=== PATIENT | female | born 1990 | race Native Hawaiian/Other Pacific Islander ===

== ENCOUNTER 2017-08-15 01:08 | Emergency (ER) | payer SELFPAY ==
--- NOTE | 2017-08-15 01:37 | ED PDOC ---
Arrival/HPI - General Chief Complaint: Chest Pain Time Seen by Provider: 08/15/17 01:16 Historian: Patient - History of Present Illness Narrative History of Present Illness (Text): 08/15/17 01:32 A 27 year old female, with no significant past medical history, who presents to the emergency debarment complaining of vague chest discomfort for the past few days. Patient reports associated occasional shortness of breath and tingling sensation in her hands and feet. Patient notes she has a history of difficulty sleeping. Patient denies fevers, chills, cough, headache, dizziness, abdominal pain, nausea, vomiting, diarrhea, back pain, neck pain, or any other related complaints. Time/Duration: > week Symptom Onset: Gradual Symptom Course: Unchanged, Intermittent Activities at Onset: Rest Context: Home Past Medical History - Provider Review Nursing Documentation Reviewed: Yes - Infectious Disease Hx of Infectious Diseases: None - Psychiatric Hx Substance Use: No - Anesthesia Hx Anesthesia: No Family/Social History - Physician Review Nursing Documentation Reviewed: Yes Family/Social History: No Known Family HX Smoking Status: Never Smoked Hx Alcohol Use: Yes Frequency of alcohol use: Socially Hx Substance Use: No Allergies/Home Meds Allergies/Adverse Reactions: Allergies No Known Allergies Allergy (Verified 08/15/17 01:21) Review of Systems - Physician Review All systems were reviewed & negative as marked: Yes - Review of Systems Constitutional: Normal. absent: Fevers, Night Sweats Eyes: Normal ENT: Normal Respiratory: SOB Cardiovascular: Chest Pain Gastrointestinal: Normal. absent: Abdominal Pain, Diarrhea, Nausea, Vomiting Genitourinary Female: Normal Musculoskeletal: Normal Skin: Normal Neurological: Normal. absent: Headache Endocrine: Normal Hemo/Lymphatic: Normal Psychiatric: Normal Physical Exam Vital Signs Reviewed: Yes Vital Signs Temp Pulse Pulse Resp BP Pulse Ox 08/15/17 01:58 86 08/15/17 01:33 97.8 F 77 17 113/85 100 Temperature: Afebrile Blood Pressure: Normal Pulse: Regular Respiratory Rate: Normal Appearance: Positive for: Well-Appearing, Non-Toxic, Comfortable Pain Distress: None Mental Status: Positive for: Alert and Oriented X 3 - Systems Exam Head: Present: Atraumatic, Normocephalic Pupils: Present: PERRL Extroacular Muscles: Present: EOMI Conjunctiva: Present: Normal Mouth: Present: Moist Mucous Membranes Neck: Present: Normal Range of Motion Respiratory/Chest: Present: Clear to Auscultation, Good Air Exchange. No: Respiratory Distress, Accessory Muscle Use Cardiovascular: Present: Regular Rate and Rhythm, Normal S1, S2. No: Murmurs Abdomen: Present: Normal Bowel Sounds. No: Tenderness, Distention, Peritoneal Signs Back: Present: Normal Inspection Upper Extremity: Present: Normal Inspection. No: Cyanosis, Edema Lower Extremity: Present: Normal Inspection. No: Edema Neurological: Present: GCS=15, CN II-XII Intact, Speech Normal Skin: Present: Warm, Dry, Normal Color. No: Rashes Psychiatric: Present: Alert, Oriented x 3, Normal Insight, Normal Concentration Medical Decision Making ED Course and Treatment: 08/15/17 01:42 Impression: A 27 year old female with vague chest discomfort, occasional shortness of breath, and tingling sensation in hands and feet. Plan: -- EKG -- Chest X-Ray -- Labs, cardiac enzymes, D-dimer -- Reassess and disposition Progress Notes: Reviewed EKG, NSR at 76 bpm. Sinus arrhythmia. No acute changes. 08/15/17 03:09 Chest X-ray reviewed, shows no acute proceses/ 08/15/17 03:14 On re-evaluation, patient feels better and is in no acute distress. I have discussed the results and plan with the patient, who expresses understanding. Patient in agreement with plan to be discharged home. Patient is stable for discharge. Patient was instructed to follow up with physician or return if symptoms worsen or new concerning symptoms arise. - Lab Interpretations Lab Results: 08/15/17 01:54 08/15/17 01:54 Lab Results 08/15/17 01:54: D-Dimer, Quantitative < 200 08/15/17 01:54: WBC 7.5, RBC 4.90, Hgb 11.3 L, Hct 35.7 L, MCV 72.9 L, MCH 23.1 L, MCHC 31.7, RDW 15.2 H, Plt Count 314, MPV 10.5 08/15/17 01:54: Sodium 138, Potassium 3.6, Chloride 94 L, Carbon Dioxide 33, Anion Gap 15, BUN 11, Creatinine 0.6 L, Est GFR ( Amer) > 60, Est GFR ( Non-Af Amer) > 60, Random Glucose 91, Calcium 10.6 H, Total Bilirubin 0.6, AST 31, ALT 26, Alkaline Phosphatase 70, Lactate Dehydrogenase 479, Total Creatine Kinase 52, Troponin I < 0.01, Total Protein 8.9 H, Albumin 4.8, Globulin 4.0, Albumin/Globulin Ratio 1.2 I have reviewed the lab results: Yes Interpretation: All labs normal - RAD Interpretation Radiology Orders: 08/15/17 01:34 CHEST PORTABLE [RAD] [employer] Solutions Manager: ED Physician - EKG Interpretation Interpreted by ED Physician: Yes Type: 12 lead EKG - Scribe Statement The provider has reviewed the documentation as recorded by the Jenae Ortegaibe Attestation: Ashleigh Matt under supervision of Lily Emanuel Attestation: All medical record entries made by the Jordanibe were at my direction and personally dictated by me. I have reviewed the chart and agree that the record accurately reflects my personal performance of the history, physical exam, medical decision making, and the department course for this patient. I have also personally directed, reviewed, and agree with the discharge instructions and disposition. Disposition/Present on Arrival - Present on Arrival Any Indicators Present on Arrival: No History of DVT/PE: No History of Uncontrolled Diabetes: No Urinary Catheter: No History of Decub. Ulcer: No History Surgical Site Infection Following: None - Disposition Have Diagnosis and Disposition been Completed?: Yes Diagnosis: Chest pain, Anxiety Disposition: HOME/ ROUTINE Disposition Time: 03:10 Patient Plan: Discharge Condition: GOOD Discharge Instructions (ExitCare): Chest Pain (ED) Additional Instructions: maintain proper sleep/no strenuous physical activity/medication as prescribed/ advil as directed/follow up with your doctor this week Prescriptions: hydrOXYzine HCl [Atarax] 25 mg PO Q8H PRN #15 tab PRN Reason: Anxiety Forms: [employer] (Kinyarwanda)
[2017-08-15 02:11] LABS: HEMOGLOBIN 11.3 g/dL (12.0-16.0); MEAN CELL VOLUME 72.9 fl (80.0-105.0); MEAN CORPUSCULAR HEMOGLOBIN 23.1 pg (25.0-35.0); MEAN CORPUSCULAR HGB CONC 31.7 g/dl (31.0-37.0); MEAN PLATELET VOLUME 10.5 fl (7.0-11.0); RBC 4.9 10^6/uL (3.5-6.1); RED CELL DISTRIBUTION WIDTH 15.2 % (11.5-14.5); WHITE BLOOD COUNT 7.5 10^3/ul (4.5-11.0)
[2017-08-15 02:14] LABS: ALB/GLOB RATIO 1.2 (1.1-1.8); ALBUMIN 4.8 g/dL (3.0-4.8); ALT/SGPT 26 U/L (7-56); AST/SGOT 31 U/L (14-36); BLOOD UREA NITROGEN 11 mg/dL (7-21); CALCIUM 10.6 mg/dL (8.4-10.5); GFR AFRICAN-AMERICAN > 60; GFR NON-AFRICAN AMERICAN > 60
[2017-08-15 02:25] LABS: TROPONIN I < 0.01 ng/mL
[2017-08-15 03:34] VITALS: BP 114/75; PULSE 73; RESP 18; TEMP 98; O2SAT 98
--- NOTE | 2017-08-15 10:19 | RAD ---
HISTORY: pain COMPARISON: No prior. FINDINGS: LUNGS: No active pulmonary disease. PLEURA: No significant pleural effusion identified, no pneumothorax apparent. CARDIOVASCULAR: Normal. OSSEOUS STRUCTURES: No significant abnormalities. VISUALIZED UPPER ABDOMEN: Normal. OTHER FINDINGS: None. IMPRESSION: No acute cardiopulmonary disease appreciated.
--- NOTE | 2017-08-15 23:18 | CARD ---
APPROVED REPORT EKG Measurement Heart [id number] <Conclusion> Normal sinus rhythm with sinus arrhythmia Normal ECG
== END 2017-08-15 03:29 | disposition home or self-care (01) ==
LOC: ED 01:08
DX: R07.9 Chest pain, unspecified (principal); F41.9 Anxiety disorder, unspecified

== ENCOUNTER 2018-07-16 18:22 | Emergency (ER) | payer OTHER ==
[2018-07-16 18:29] VITALS: BMI 22.3
[2018-07-16 18:48] VITALS: TEMP 98; O2SAT 100
--- NOTE | 2018-07-16 19:10 | ED PDOC ---
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 Patient describes pain as heaviness. States she was watching Netflix when pain occurred. Mentions now pain has improved but is still present. Patient denies any fever, chills, URI symptoms, shortness of breath, radiating back pain, nausea, vomiting, any trauma, leg pain/swelling, or any other complaints at this time. Denies any recent travel, denies history of smoking. No PMD <Lisa Porter PA-C - Last Filed: 07/16/18 21:56> - General Chief Complaint: Chest Pain Time Seen by Provider: 07/16/18 18:34 Past Medical History - Provider Review Nursing Documentation Reviewed: Yes - Infectious Disease Hx of Infectious Diseases: None - Pulmonary Hx Asthma: Yes - Psychiatric Hx Anxiety: Yes Hx Substance Use: No - Anesthesia Hx Anesthesia: No <Lisa Porter PA-C - Last Filed: 07/16/18 21:56> Family/Social History - Physician Review Nursing Documentation Reviewed: Yes Family/Social History: No Known Family HX Smoking Status: Never Smoked Hx Alcohol Use: Yes Hx Substance Use: No <Lisa Porter PA-C - Last Filed: 07/16/18 21:56> Allergies/Home Meds <Hola Newman - Last Filed: 07/16/18 20:47> <Lisa Porter PA-C - Last Filed: 07/16/18 21:56> Allergies/Adverse Reactions: Allergies No Known Allergies Allergy (Verified 08/15/17 01:21) Review of Systems - Physician Review All systems were reviewed & negative as marked: Yes - Review of Systems Constitutional: absent: Fevers, Night Sweats Respiratory: absent: SOB, Cough, Sputum, Wheezing Cardiovascular: Chest Pain Gastrointestinal: absent: Nausea, Vomiting Musculoskeletal: absent: Back Pain, Other (no leg pain/swelling) <Lisa Porter PA-C - Last Filed: 07/16/18 21:56> Physical Exam Vital Signs Temp Pulse Resp BP Pulse Ox 07/16/18 20:10 79 14 113/65 100 07/16/18 18:43 98.0 F 97 H 18 132/83 100 <Hola Newman - Last Filed: 07/16/18 20:47> Vital Signs Reviewed: Yes Vital Signs Temp Pulse Resp BP Pulse Ox 07/16/18 18:43 98.0 F 97 H 18 132/83 100 Temperature: Afebrile Blood Pressure: Normal Pulse: Tachycardic Respiratory Rate: Normal Appearance: Positive for: Well-Appearing, Non-Toxic, Comfortable Pain Distress: Mild Mental Status: Positive for: Alert and Oriented X 3 - Systems Exam Head: Present: Atraumatic, Normocephalic Pupils: Present: PERRL Extroacular Muscles: Present: EOMI Conjunctiva: Present: Normal Mouth: Present: Moist Mucous Membranes Neck: Present: Normal Range of Motion Respiratory/Chest: Present: Clear to Auscultation, Good Air Exchange. No: Respiratory Distress, Accessory Muscle Use Cardiovascular: Present: Regular Rate and Rhythm, Normal S1, S2, Tachycardic. No: Murmurs Abdomen: No: Tenderness, Distention, Peritoneal Signs Back: Present: Normal Inspection Upper Extremity: Present: Normal Inspection. No: Cyanosis, Edema Lower Extremity: Present: Normal Inspection. No: Edema Neurological: Present: GCS=15, CN II-XII Intact, Speech Normal Skin: Present: Warm, Dry, Normal Color. No: Rashes Psychiatric: Present: Alert, Oriented x 3, Normal Insight, Normal Concentration, Anxious <Lisa Porter PA-C - Last Filed: 07/16/18 21:56> Medical Decision Making - Lab Interpretations Lab Results: PT 11.4 SECONDS (9.4-12.5) 07/16/18 19:29 INR 1.03 07/16/18 19:29 APTT 29.5 Seconds (26.9-38.3) 07/16/18 19:29 D-Dimer, Quantitative < 200 ng/mlDDU (0-243) 07/16/18 19:29 Troponin I < 0.01 ng/mL 07/16/18 19:29 Total Bilirubin 0.5 mg/dL (0.2-1.3) 07/16/18 19:29 AST 32 U/L (14-36) 07/16/18 19:29 ALT 12 U/L (7-56) 07/16/18 19:29 Alkaline Phosphatase 67 U/L (38-126) 07/16/18 19:29 Total Protein 8.5 g/dL (5.8-8.3) H 07/16/18 19:29 Albumin 4.6 g/dL (3.0-4.8) 07/16/18 19:29 Globulin 3.9 gm/dL 07/16/18 19:29 Albumin/Globulin Ratio 1.2 (1.1-1.8) 07/16/18 19:29 - RAD Interpretation Radiology Orders: 07/16/18 18:53 CHEST PORTABLE [RAD] Stat - Medication Orders Current Medication Orders: Discontinued Medications Alprazolam (Xanax) 0.25 mg PO STAT STA; Protocol Stop: 07/16/18 18:56 Last Admin: 07/16/18 19:30 Dose: 0.25 mg Potassium Chloride (Potassium Chloride Oral Soln) 40 meq PO STAT STA Stop: 07/16/18 19:48 Last Admin: 07/16/18 20:08 Dose: 40 meq <Hola Newman - Last Filed: 07/16/18 20:47> ED Course and Treatment: 07/16/18 19:10 Impression: 28 year old female with chest pain. Plan: -- EKG -- Chest X-ray -- Labs -- Xanax -- POC Urine Test -- Reassess and disposition Prior Visits: Notes and results from previous visits were reviewed. Patient was last seen in the emergency department on 07/2017 for chest pain and had a cardiac workup, including normal EKG and normal Chest X-ray. Progress Notes: 07/16/18 21:00 EKG : NSR at 95 bpm, no acute ST changes, as read by PA CXR : NAD, as read by PA Labs reviewed mild anemia, K 3.2, (-) trop and (-) d-dimer, UDS +cannabis Patient given KCl PO. On re-evaluation, patient reports improvement of symptoms, denies any chest pain or SOB. VS P 98 BP 114/64 O2sat 100%RA. On exam, patient remains AAOx3, in no acute distress. Diagnostic results d/w the patient in great detail. Diagnosis of chest pain, likely anxiety d/w the patient. Based on history, exam and diagnostic results, plan will be for outpatient follow upn. Patient instructed to follow-up with referral provided in 1-2 days without fail. Advised to take medication as prescribed. Return to the emergency room at any time for any new or worsening symptoms. Patient states she fully agrees with and understands discharge instructions. States that she agrees with the plan and disposition. Verbalized and repeated discharge instructions and plan. I have given the patient opportunity to ask any additional questions. - RAD Interpretation Radiology Orders: 07/16/18 18:53 CHEST PORTABLE [RAD] Stat - Medication Orders Current Medication Orders: Discontinued Medications Alprazolam (Xanax) 0.25 mg PO STAT STA; Protocol Stop: 07/16/18 18:56 <Lisa Porter PA-C - Last Filed: 07/16/18 21:56> - PA / BRIDGE CLUB MANAGER / Resident Statement MIREYA has reviewed & agrees with the documentation as recorded. <Hola Newman - Last Filed: 07/16/18 20:47> - PA / BRIDGE CLUB MANAGER / Resident Statement MIREYA has reviewed & agrees with the documentation as recorded. - Scribe Statement The provider has reviewed the documentation as recorded by the Jenae Dill Provider Scribe Attestation: All medical record entries made by the Scribe were at my direction and personally dictated by me. I have reviewed the chart and agree that the record accurately reflects my personal performance of the history, physical exam, medical decision making, and the department course for this patient. I have also personally directed, reviewed, and agree with the discharge instructions and disposition. <Lisa Porter PA-C - Last Filed: 07/16/18 21:56> Disposition/Present on Arrival <Hola Newman - Last Filed: 07/16/18 20:47> - Present on Arrival Any Indicators Present on Arrival: No History of DVT/PE: No History of Uncontrolled Diabetes: No Urinary Catheter: No History of Decub. Ulcer: No History Surgical Site Infection Following: None - Disposition Have Diagnosis and Disposition been Completed?: Yes Disposition Time: 21:00 Patient Plan: Discharge <Lisa Porter PA-C - Last Filed: 07/16/18 21:56> - Disposition Diagnosis: Chest pain Disposition: HOME/ ROUTINE Condition: STABLE Discharge Instructions (ExitCare): Anxiety, Adult (DC), Chest Pain (ED) Additional Instructions: Thank you for letting us take care of you today. You were treated for chest pain, consider anxiety. The emergency medical care you received today was directed at your acute symptoms. If you were prescribed any medication, please fill it and take as directed. It may take several days for your symptoms to reso lve. Return to the Emergency Department if your symptoms worsen, do not improve, or if you have any other problems. Please contact your doctor in 2 days for re-evaluation and follow up / or call one of the physicians/clinics you have been referred to that are listed on the Patient Visit Information form that is included in your discharge packet. Bring any paperwork you were given at discharge with you along with any medications you are taking to your follow up visit. Our treatment cannot replace ongoing medical care by a primary care provider (PCP) outside of the emergency department. Thank you for allowing the [facility] team to be part of your care today. If you had an X-Ray : A Radiologist will review the ED reading if any change in treatment is needed we will contact you. Prescriptions: ALPRAZolam [Xanax] 0.25 mg PO TID PRN #9 tab PRN Reason: Anxiety Referrals: PCP,NO [Primary Care Provider] - Follow up with primary João Hsu DO [Staff Provider] - Follow up with primary Forms: [employer] (Citizen Of [place])
[2018-07-16 19:45] LABS: ALB/GLOB RATIO 1.2 (1.1-1.8); ALBUMIN 4.6 g/dL (3.0-4.8); ALT/SGPT 12 U/L (7-56); AST/SGOT 32 U/L (14-36); BLOOD UREA NITROGEN 10 mg/dL (7-21); CALCIUM 9.6 mg/dL (8.4-10.5); GFR NON-AFRICAN AMERICAN > 60
[2018-07-16] MEDS ORDERED: Potassium Chloride 40 mEq/30 ml LIQ UD PO STA (19:47)
[2018-07-16 19:59] LABS: BASO # 0.02 K/mm3 (0.0-2.0); BASO % 0.5 % (0.0-3.0); EOS # 0.1 (0.0-0.7); EOS % 2.5 % (1.5-5.0); HEMOGLOBIN 10.4 g/dL (12.0-16.0); LYMPH # 1.2 (1.2-3.4); LYMPH % 27.3 % (22.0-35.0); MEAN CELL VOLUME 70.6 fl (80.0-105.0); MEAN CORPUSCULAR HEMOGLOBIN 21.1 pg (25.0-35.0); MEAN CORPUSCULAR HGB CONC 29.9 g/dl (31.0-37.0); MEAN PLATELET VOLUME 10.3 fl (7.0-11.0); MONO # 0.3 (0.1-0.6); MONO % 7.3 % (1.0-6.0); RBC 4.93 10^6/uL (3.5-6.1); RED CELL DISTRIBUTION WIDTH 17.3 % (11.5-14.5); WHITE BLOOD COUNT 4.4 10^3/uL (4.5-11.0)
[2018-07-16 20:02] LABS: INR 1.03; PARTIAL THROMBOPLASTIN TIME 29.5 Seconds (26.9-38.3); PROTHROMBIN TIME 11.4 SECONDS (9.4-12.5)
[2018-07-16 20:05] LABS: BARBITURATES, UR NEGATIVE (NEGATIVE); BENZODIAZEPINES, UR NEGATIVE (NEGATIVE); OPIATES, UR NEGATIVE (NEGATIVE); PHENCYCLIDINE, UR NEGATIVE (NEGATIVE); TROPONIN I < 0.01 ng/mL
[2018-07-16 20:23] LABS: D DIMER < 200 ng/mlDDU (0-243)
[2018-07-16 20:58] VITALS: BP 114/64; PULSE 98; RESP 18
--- NOTE | 2018-07-17 09:59 | RAD ---
Date of service: 07/16/2018 HISTORY: chest pain COMPARISON: 08/15/2017. FINDINGS: LUNGS: The lungs are well inflated and clear. PLEURA: No pleural effusions or pneumothorax. CARDIOVASCULAR: The heart is normal in size. No aortic atherosclerotic calcifications present. OSSEOUS STRUCTURES: Within normal limits for the patient's age. VISUALIZED UPPER ABDOMEN: Normal. OTHER FINDINGS: None. IMPRESSION: No active pulmonary disease.
--- NOTE | 2018-07-17 10:24 | CARD ---
APPROVED REPORT Date of service: 07/16/2018 EKG Measurement Heart [id number] <Conclusion> Normal sinus rhythm with sinus arrhythmia Normal ECG
== END 2018-07-16 21:22 | disposition home or self-care (01) ==
LOC: ED 18:22
DX: R07.9 Chest pain, unspecified (principal)
CPT/HCPCS: 71045; 80053; 80324; 80345; 80346; 80349; 80353; 80358; 80361; 81025; 82550; 83615; 83735; 83992; 84484; 85025; 85378; 85610; 85730; 93005; 99284; J3480